=== PATIENT | female | born 1965 | race African-American/Black ===

== ENCOUNTER 2022-01-15 04:44 | Day surgery (SDC) | payer BC, OTHER ==
[2022-01-11 16:08] VITALS: BMI 29.7
[2022-01-15 10:33] VITALS: TEMP 98
[2022-01-15 11:24] VITALS: BP 154/87; PULSE 78
== END 2022-01-15 11:19 | disposition home or self-care (01) ==
LOC: JASU-ENDO 04:44
PROVIDERS: ATTEND Internal Medicine Gastroenterology
PROC: 0DJD8ZZ Inspection of Lower Intestinal Tract, Via Natural or Artificial Opening Endoscopic (ICD-10-PCS; principal; 2022-01-15 09:45)
DX: Z12.11 Encounter for screening for malignant neoplasm of colon (principal); D12.8 Benign neoplasm of rectum; K57.30 Diverticulosis of large intestine without perforation or abscess without bleeding; K64.8 Other hemorrhoids; I10 Essential (primary) hypertension; E11.9 Type 2 diabetes mellitus without complications
CPT/HCPCS: 81025; 82962